=== PATIENT | male | born 1990 ===

== ENCOUNTER 2025-08-31 17:35 | Inpatient (IN) | payer OTHER ==
[~2025-08-31] VITALS: Ht 188 cm; Wt 100.4 kg
[2025-08-31] MEDS ORDERED: LORazepam 2 MG/ML VIAL ONE (18:32)
[2025-08-31] MEDS: LevETIRAcetam 1,000 MG in DEXTROSE 5%-WATER 100 ML IV ONE (18:34)
[2025-08-31] MEDS: METOCLOPRAMIDE HCL 5 MG/ML 2 ML VIAL IVP ONE (18:39)
[2025-08-31] MEDS: ACETAMINOPHEN 500 MG TABLET PO ONE (18:39)
[2025-08-31] MEDS: SODIUM CHLORIDE 0.9% 1,000 ML IV ONE (18:40)
[2025-08-31 19:57] LABS: PLATELET COUNT (AUTO) 240 K/uL (150-450); RED BLOOD CELL COUNT(AUTO) 5.67 MIL/uL (4.50-5.90); RED CELL DISTRIBUTION WIDTH 13.5 % (11.5-14.5); WHITE BLOOD COUNT (AUTO) 8.3 K/uL (4.5-11.0)
[2025-08-31 20:05] LABS: CALCIUM, TOTAL 8.9 mg/dL (8.8-10.5); CREATININE 0.75 mg/dL (0.60-1.30); GLOMERULAR FILTR. RATE CALC > 60 mL/min (>60); GLUCOSE,RANDOM 88 mg/dL (70-110); SODIUM SERUM 137 mmol/L (136-145); UREA NITROGEN, BLOOD 12 mg/dL (7-18)
[2025-08-31 20:09] LABS: ASPARTATE AMINOTRANSFERASE 19 U/L (15-37); TOTAL PROTEIN, SERUM 8.1 g/dL (6.4-8.2)
[2025-08-31 20:10] LABS: ALCOHOL, BLOOD (SERUM) < 3 mg/dL (0-10)
[2025-08-31 20:14] LABS: TROPONIN I-HIGH SENSITIVITY 4 ng/L (<76)
[2025-08-31 21:16] LABS: APPEARANCE,URINE CLEAR (CLEAR); GLUCOSE, URINE (UA) NEGATIVE (NEGATIVE); LEUKOCYTE ESTERASE ,URINE NEGATIVE (NEGATIVE); NITRATE,URINE NEGATIVE (NEGATIVE); OCCULT BLOOD,URINE NEGATIVE (NEGATIVE); PH,URINE DRUG SCREEN 6.0 (5.0-8.0); SPECIFIC GRAVITIY, URINE 1.016 (1.003-1.030)
[2025-08-31] MEDS ORDERED: DIAZ10 PO (21:17)
[2025-08-31 21:24] LABS: AMPHET/METH SCREEN,URINE POSITIVE (NEGATIVE); BARBITURATE SCREEN, URINE NEGATIVE (NEGATIVE); CANNABINOID SCREEN,URINE NEGATIVE (NEGATIVE); COCAINE SCREEN,URINE NEGATIVE (NEGATIVE); METHADONE SCREEN, URINE NEGATIVE (NEGATIVE)
[2025-08-31 21:28] LABS: ALCOHOL, URINE DRUG SCREEN NEGATIVE (NEGATIVE)
[2025-08-31] MEDS ORDERED: ONDANSETRON HCL 4 MG/2 ML VIAL IVP PRN (23:15)
[2025-08-31] MEDS ORDERED: BACLOFEN 10 MG TABLET PO PRN (23:15)
[2025-08-31] MEDS ORDERED: IPRATROPIUM BROMIDE 0.5 MG/2.5 ML NEB SOLUTION NEB PRN (23:15)
[2025-08-31] MEDS ORDERED: ALBUTEROL SULFATE 2.5 MG/0.5 ML NEB SOLUTION NEB PRN (23:15)
[2025-08-31] MEDS ORDERED: MAG HYDROX/ALUMINUM HYD/SIMETH ES 30 ML SUSPENSION UDCUP PO PRN (23:15)
[2025-08-31] MEDS ORDERED: ACETAMINOPHEN 325 MG TABLET PO PRN (23:15)
[2025-08-31] MEDS ORDERED: BISACODYL 10 MG RECTAL RECTAL SUPPOSITORY PR PRN (23:15)
[2025-08-31] MEDS ORDERED: MAGNESIUM HYDROXIDE SUSPENSION 30 ML UDCUP PO PRN (23:15)
[2025-08-31] MEDS ORDERED: LOPERAMIDE HCL 2 MG/15 ML SUSPENSION UDCUP PO PRN (23:15)
[2025-08-31] MEDS ORDERED: PROMETHAZINE HCL 25 MG TABLET PO PRN (23:15)
[2025-08-31] MEDS ORDERED: DICYCLOMINE HCL 10 MG CAPSULE PO PRN (23:15)
[2025-08-31 23:50] VITALS: BP 115/84; PULSE 55; RESP 16; TEMP 97.7; O2SAT 100
[2025-09-01] VITALS (7 sets, daily range): BP systolic 112–147; BP diastolic 71–83; PULSE 53–76; RESP 16–19; TEMP 97.7–98.2; O2SAT 96–100
[2025-09-01] MEDS: HEPARIN SODIUM,PORCINE 5,000 UNITS/ML VIAL SQ SCH (00:30)
[2025-09-01] MEDS: SODIUM CHLORIDE 0.45% 1,000 ML IV SCH (01:02)
[2025-09-01 06:26] LABS: PLATELET COUNT (AUTO) 211 K/uL (150-450); RED BLOOD CELL COUNT(AUTO) 5.44 MIL/uL (4.50-5.90); RED CELL DISTRIBUTION WIDTH 13.4 % (11.5-14.5); WHITE BLOOD COUNT (AUTO) 7.6 K/uL (4.5-11.0)
[2025-09-01 06:39] LABS: CALCIUM, TOTAL 8.5 mg/dL (8.8-10.5); CREATININE 0.63 mg/dL (0.60-1.30); GLOMERULAR FILTR. RATE CALC > 60 mL/min (>60); GLUCOSE,RANDOM 84 mg/dL (70-110); SODIUM SERUM 138 mmol/L (136-145); UREA NITROGEN, BLOOD 11 mg/dL (7-18)
[2025-09-01] MEDS: PANTOPRAZOLE SODIUM 40 MG DR TABLET PO SCH (08:39)
[2025-09-01] MEDS: ZOLPIDEM TARTRATE 5 MG TABLET PO PRN (19:46)
[2025-09-02 00:44] VITALS: BP 137/79; PULSE 67; RESP 19; TEMP 97.7; O2SAT 98
[2025-09-02 04:00] VITALS: BP 128/74; PULSE 68; RESP 18; TEMP 98.1; O2SAT 100
[2025-09-02 05:01] VITALS: BP 128/74; PULSE 68; RESP 18; TEMP 98.1; O2SAT 100
[2025-09-02] MEDS: ACETAMINOPHEN 325 MG TABLET PO PRN (11:38)
[2025-09-02 12:10] VITALS: BP 117/84; PULSE 63; RESP 19; TEMP 98.2; O2SAT 100
[2025-09-02 15:15] VITALS: BP 120/75; PULSE 73; RESP 18; TEMP 98.2; O2SAT 99
[2025-09-02 20:32] LABS: PLATELET COUNT (AUTO) 232 K/uL (150-450); RED BLOOD CELL COUNT(AUTO) 5.36 MIL/uL (4.50-5.90); RED CELL DISTRIBUTION WIDTH 13.5 % (11.5-14.5); WHITE BLOOD COUNT (AUTO) 7.7 K/uL (4.5-11.0)
[2025-09-02 20:40] LABS: CALCIUM, TOTAL 8.3 mg/dL (8.8-10.5); CREATININE 0.71 mg/dL (0.60-1.30); GLOMERULAR FILTR. RATE CALC > 60 mL/min (>60); GLUCOSE,RANDOM 167 mg/dL (70-110); SODIUM SERUM 134 mmol/L (136-145); UREA NITROGEN, BLOOD 6 mg/dL (7-18)
[2025-09-02 21:06] VITALS: BP 125/78; PULSE 66; RESP 18; TEMP 98.2; O2SAT 99
[2025-09-02] MEDS: IBUPROFEN 600 MG TABLET PO PRN (22:27)
[2025-09-03] VITALS (7 sets, daily range): BP systolic 110–132; BP diastolic 57–80; PULSE 60–73; RESP 16–18; TEMP 97.9–98.8; O2SAT 97–100
[2025-09-03 13:55] LABS: PLATELET COUNT (AUTO) 252 K/uL (150-450); RED BLOOD CELL COUNT(AUTO) 6.25 MIL/uL (4.50-5.90); RED CELL DISTRIBUTION WIDTH 13.7 % (11.5-14.5); WHITE BLOOD COUNT (AUTO) 9.4 K/uL (4.5-11.0)
[2025-09-03 14:01] LABS: CALCIUM, TOTAL 9.0 mg/dL (8.8-10.5); CREATININE 0.89 mg/dL (0.60-1.30); GLOMERULAR FILTR. RATE CALC > 60 mL/min (>60); GLUCOSE,RANDOM 115 mg/dL (70-110); SODIUM SERUM 140 mmol/L (136-145); UREA NITROGEN, BLOOD 6 mg/dL (7-18)
[2025-09-04 04:15] VITALS: BP 112/82; PULSE 63; RESP 17; TEMP 98.1; O2SAT 99
[2025-09-04 08:45] VITALS: BP 118/76; PULSE 78; RESP 18; TEMP 98.3; O2SAT 98
[2025-09-04 16:15] VITALS: BP 116/80; PULSE 75; RESP 18; TEMP 98; O2SAT 100
[2025-09-04 19:15] VITALS: BP 113/83; PULSE 78; RESP 18; TEMP 98.1; O2SAT 99
[2025-09-05 04:30] VITALS: BP 118/88; PULSE 72; RESP 18; TEMP 98.1; O2SAT 98
[2025-09-05 08:48] VITALS: BP 113/84; PULSE 76; RESP 20; TEMP 98; O2SAT 100
[2025-09-05 13:20] LABS: ASPARTATE AMINOTRANSFERASE 38 U/L (15-37); CALCIUM, TOTAL 9.3 mg/dL (8.8-10.5); CREATININE 1.07 mg/dL (0.60-1.30); GLOMERULAR FILTR. RATE CALC > 60 mL/min (>60); GLUCOSE,RANDOM 159 mg/dL (70-110); SODIUM SERUM 137 mmol/L (136-145); TOTAL PROTEIN, SERUM 8.2 g/dL (6.4-8.2); UREA NITROGEN, BLOOD 7 mg/dL (7-18)
[2025-09-05 17:26] VITALS: BP 115/80; PULSE 70; RESP 20; TEMP 97.9; O2SAT 99
[2025-09-05 20:00] VITALS: BP 123/78; PULSE 86; RESP 18; TEMP 98.1; O2SAT 100
[2025-09-06 04:00] VITALS: BP 116/80; PULSE 80; RESP 18; TEMP 98; O2SAT 99
[2025-09-06 08:33] VITALS: BP 115/70; PULSE 81; RESP 18; TEMP 98.1; O2SAT 100
== END 2025-09-06 16:30 | DRG 101 ==
LOC: EMS 17:35 → EDH 21:26 → 5S 23:40 → 6N 09-03 15:45
PROVIDERS: ADMIT Hospitalist; ATTEND Hospitalist
DX: R56.9 Unspecified convulsions (principal); E87.6 Hypokalemia; F11.10 Opioid abuse, uncomplicated; G43.909 Migraine, unspecified, not intractable, without status migrainosus
CPT/HCPCS: 70450; 71045; 80048; 80053; 80076; 80307; 81003; 84484; 85025; 93005; 95816; 99285; G0378; G0480; J0712; J1200; J1644; J2060; J2765; J7030; J7060; 36415-L1; 36415-TC